=== PATIENT | female | born 1950 | race Caucasian/White ===

== ENCOUNTER 2024-08-27 23:54 | Inpatient (IN) | payer MEDICARE, OTHER ==
[~2024-08-27] VITALS: Ht 170.2 cm; Wt 90.9 kg
[2024-08-28 00:16] LABS: BASOPHILS # (AUTO) 0.1 X10'3 (0-0.2); BASOPHILS % (AUTO) 1.4 % (0-1); EOSINOPHILS # (AUTO) 0.2 X10'3 (0-0.9); EOSINOPHILS % (AUTO) 4.5 % (0-6); HEMATOCRIT 36.9 % (35.0-45.0); HEMOGLOBIN 12.5 g/dl (12.0-16.0); LYMPHOCYTES # (AUTO) 1.6 X10'3 (1.1-4.8); LYMPHOCYTES % (AUTO) 39.6 % (21-51); MEAN CORPUSCULAR HEMOGLOBIN 31.6 PG (27.0-31.0); MEAN CORPUSCULAR HGB CONC 33.7 g/dL (33.0-36.5); MEAN CORPUSCULAR VOLUME 93.6 FL (78-98); MEAN PLATELET VOLUME 9.1 FL (7.4-10.4); MONOCYTES # (AUTO) 0.5 X10'3 (0-0.9); MONOCYTES % (AUTO) 12.6 % (2-12); NEUTROPHILS # (AUTO) 1.6 X10'3 (1.8-7.7); NEUTROPHILS % (AUTO) 41.9 % (42-75); PLATELET COUNT 177 X10'3 (140-440); RED BLOOD COUNT 3.94 X10'6 (4.20-5.60); RED CELL DISTRIBUTION WIDTH 13.5 % (11.5-14.5); WHITE BLOOD COUNT 3.9 X10'3 (4.5-11.0)
[2024-08-28] MEDS: diltiazem 5mg/ml 5ml inj. IV ONE ×2 (00:29→01:07)
[2024-08-28 00:34] LABS: ALANINE AMINOTRANSFERASE 20 U/L (12-78); ALBUMIN 3.2 G/DL (3.4-5.0); ALKALINE PHOSPHATASE 72 IU/L (46-116); ANION GAP 12 (8-16); ASPARTATE AMINO TRANSFERASE 18 U/L (10-37); BILIRUBIN,TOTAL 0.5 MG/DL (0.1-1.0); BLOOD UREA NITROGEN 15 MG/DL (7-18); BUN/CREATININE RATIO 17.4 (10.0-20.0); CHLORIDE 104 MMOL/L (99-107); CREATININE 0.86 MG/DL (0.40-0.90); GLUCOSE 216 MG/DL (70-104); PRO BRAIN NATRIURETIC PEPTIDE 349 PG/ML (0-450); SODIUM 141 MMOL/L (135-145); TOTAL PROTEIN 6.3 G/DL (6.4-8.2); eCRCL 54 ML/MIN; eGFR 64 ML/MIN
[2024-08-28] MEDS ORDERED: diltiazem 5mg/ml 5ml inj. IV ONE (00:45)
[2024-08-28 00:47] LABS: POTASSIUM 2.5 MMOL/L (3.5-5.1)
[2024-08-28] MEDS: potassium Cl 20 mEq SR tablet PO STA (01:05)
[2024-08-28] MEDS: diltiazem-NS 100mg/100ml 100 ML IV SCH (01:13)
[2024-08-28] MEDS: magnesium sulf-water 2g/50mL 50 ML IV ONE (01:18)
[2024-08-28 01:34] LABS: MAGNESIUM 1.6 MG/DL (1.5-2.4)
[2024-08-28] MEDS: potassium Cl 40MEQ/1/2NS 520ml 520 ML IV SCH (01:57)
[2024-08-28] MEDS ORDERED: NIFE-72 PO (02:40)
[2024-08-28] MEDS ORDERED: ROSU40TA PO (02:40)
[2024-08-28] MEDS ORDERED: PIOG15TA8 PO (02:40)
[2024-08-28] MEDS ORDERED: EMPA25TA PO (02:40)
[2024-08-28] MEDS ORDERED: SOTA80TA73 PO (02:40)
[2024-08-28] MEDS ORDERED: LOSA50TA64 PO (02:40)
[2024-08-28] MEDS ORDERED: [UNRECOGNIZED DRUG - CODE] PO (02:40)
[2024-08-28] MEDS ORDERED: OMEP40CA21 PO (02:40)
[2024-08-28] MEDS ORDERED: GLIM2TAB6 PO (02:40)
[2024-08-28] MEDS ORDERED: potassium Cl 20 mEq SR tablet PO PRN (03:10)
[2024-08-28] MEDS ORDERED: magnesium sulf-water 2g/50mL 50 ML IV PRN (03:10)
[2024-08-28] MEDS ORDERED: ondansetron/PF 4mg/2ml inj IV PRN (03:10)
[2024-08-28] MEDS ORDERED: magnesium sulf-water 4G/100mL 100 ML IV PRN (03:10)
[2024-08-28] MEDS ORDERED: potassium Cl 40MEQ/1/2NS 520ml 520 ML IV PRN (03:10)
[2024-08-28] MEDS ORDERED: acetaminophen 325mg tablet PO PRN (03:10)
[2024-08-28] MEDS ORDERED: magnesium Cl slow-release 64mg tablet PO PRN (03:10)
[2024-08-28] MEDS ORDERED: magnesium hydroxide 30ml (MOM) UD suspension PO PRN (03:10)
[2024-08-28] MEDS ORDERED: mag hydrox/Alum hydrox/simeth 30ml oral suspension PO PRN (03:10)
[2024-08-28] MEDS ORDERED: DEXTROSE 15 GM of carb/4 tabs (each vial/BOTTLE has 4 tablets) PO PRN ×2 (03:50)
[2024-08-28] MEDS ORDERED: dextrose 50%-water 50ml dispensing syringe IV PRN ×2 (03:50)
[2024-08-28] MEDS ORDERED: glucagon, human recombinant 1mg kit SUBCUT PRN (03:50)
[2024-08-28 06:00] VITALS: BP 155/64; PULSE 82; RESP 14; TEMP 98.3; O2SAT 99
[2024-08-28] MEDS: INSULIN LISPRO 100 UNIT/ML INSULN.PEN MULTI-DOSE SQ SCH (07:00)
[2024-08-28 07:14] LABS: BILIRUBIN,URINE NEGATIVE (Neg); CLARITY,URINE CLEAR (Clear); COLOR,URINE STRAW (Yellow); GLUCOSE, URINE >=1000 mg/dl (Neg); KETONES,URINE 40 mg/dl (Neg); LEUKOCYTE ESTERASE ,URINE TRACE (Neg); NITRITES, URINE NEGATIVE (Neg); OCCULT BLOOD,URINE NEGATIVE (Neg); PROTEIN,URINE NEGATIVE (Neg); UROBILINOGEN,URINE 0.2 E.U/dL (0.2-1.0)
[2024-08-28 07:19] LABS: UA COLLECTION TYPE CLN CATCH MIDSTREAM
[2024-08-28 07:22] LABS: BACTERIA,URINE 1+ /HPF (Neg); MUCUS STRANDS FEW /LPF (Neg); RBC,URINE NONE SEEN /HPF (0-2); SQUAMOUS EPITHELIAL CELL,UR MODERATE /LPF (FEW)
[2024-08-28 07:24] LABS: WBC CLUMPS,URINE MODERATE /HPF (NEGATIVE); YEAST FEW /HPF (NEGATIVE)
[2024-08-28 07:40] LABS: POTASSIUM 3.6 MMOL/L (3.5-5.1); THYROID STIMULATING HORMONE 0.98 ulU/ml (0.34-4.50)
[2024-08-28] MEDS: K and/or MAG REPLACEMENT MC SCH (08:00)
[2024-08-28] MEDS ORDERED: glimepiride 1 MG tablet PO SCH (08:00)
[2024-08-28] MEDS ORDERED: apixaban 2.5mg tablet PO SCH (08:00)
[2024-08-28] MEDS ORDERED: pioglitazone 15mg tablet PO SCH (08:00)
[2024-08-28] MEDS ORDERED: NIFEdipine XL 30mg tablet PO SCH (08:00)
[2024-08-28] MEDS: docusate sod 100mg capsule PO SCH (09:03)
[2024-08-28] MEDS: losartan 50mg tablet PO SCH (09:03)
[2024-08-28] MEDS: pantoprazole 40mg Tablet.DR PO SCH (09:03)
[2024-08-28] MEDS: atorvastatin 20mg tablet PO SCH (09:03)
[2024-08-28] MEDS: apixaban 5mg tablet PO SCH (09:04)
[2024-08-28] MEDS: EMPAGLIFLOZIN 25 MG TABLET PO SCH (09:05)
[2024-08-28 11:00] VITALS: BP 152/66; PULSE 79; RESP 16; TEMP 98.5; O2SAT 95; O2SAT 99
[2024-08-28] MEDS: metoprolol succinate 25mg (24-HOUR) SR. Tablet PO ONE (12:22)
[2024-08-28 15:00] VITALS: BP 156/63; PULSE 88; RESP 16; TEMP 98.5; O2SAT 99
[2024-08-28 18:00] VITALS: BP 143/63; PULSE 70; RESP 18; TEMP 97.2; O2SAT 97
[2024-08-28 22:00] VITALS: BP 154/62; PULSE 73; RESP 17; TEMP 97.7; O2SAT 97
[2024-08-29] VITALS (8 sets, daily range): BP systolic 143–155; BP diastolic 67–79; PULSE 71–76; RESP 14–18; TEMP 96.9–97.8; O2SAT 9–99
[2024-08-29 07:37] LABS: BASOPHILS # (AUTO) 0.1 X10'3 (0-0.2); BASOPHILS % (AUTO) 1.1 % (0-1); EOSINOPHILS # (AUTO) 0.2 X10'3 (0-0.9); EOSINOPHILS % (AUTO) 4.3 % (0-6); LYMPHOCYTES # (AUTO) 1.1 X10'3 (1.1-4.8); LYMPHOCYTES % (AUTO) 21.6 % (21-51); MEAN CORPUSCULAR HEMOGLOBIN 31.4 PG (27.0-31.0); MEAN CORPUSCULAR HGB CONC 33.4 g/dL (33.0-36.5); MEAN PLATELET VOLUME 8.9 FL (7.4-10.4); MONOCYTES # (AUTO) 0.6 X10'3 (0-0.9); MONOCYTES % (AUTO) 11.8 % (2-12); NEUTROPHILS % (AUTO) 61.2 % (42-75); PLATELET COUNT 174 X10'3 (140-440); RED BLOOD COUNT 3.83 X10'6 (4.20-5.60); WHITE BLOOD COUNT 4.9 X10'3 (4.5-11.0)
[2024-08-29 07:42] LABS: ANION GAP 15 (8-16); BLOOD UREA NITROGEN 9 MG/DL (7-18); BUN/CREATININE RATIO 12.3 (10.0-20.0); CALCIUM 8.4 MG/DL (8.5-10.1); CHLORIDE 102 MMOL/L (99-107); CHOLESTEROL 97 MG/DL (0-200); CREATININE 0.73 MG/DL (0.40-0.90); GLUCOSE 98 MG/DL (70-104); HDL CHOLESTEROL 49 MG/DL (35-60); LDL CHOLESTEROL 44 MG/DL (50-100); POTASSIUM 3.1 MMOL/L (3.5-5.1); SODIUM 139 MMOL/L (135-145); TOTAL CARBON DIOXIDE 22.5 MMOL/L (24-32); TRIGLYCERIDES 64 MG/DL (20-135); eCRCL 64 ML/MIN; eGFR 78 ML/MIN
[2024-08-29] MEDS: metoprolol succinate 25mg (24-HOUR) SR. Tablet PO SCH (08:29)
[2024-08-29] MEDS: potassium Cl 20 mEq SR tablet PO PRN (08:30)
[2024-08-30 02:00] VITALS: BP 143/74; PULSE 73; RESP 18; TEMP 97.5; O2SAT 97
[2024-08-30 06:00] VITALS: BP 139/71; PULSE 77; RESP 17; TEMP 97.3; O2SAT 97
[2024-08-30 07:40] LABS: ALBUMIN 3.2 G/DL (3.4-5.0); ANION GAP 11 (8-16); BLOOD UREA NITROGEN 9 MG/DL (7-18); BUN/CREATININE RATIO 11.4 (10.0-20.0); CALCIUM 8.5 MG/DL (8.5-10.1); CHLORIDE 103 MMOL/L (99-107); CREATININE 0.79 MG/DL (0.40-0.90); GLUCOSE 114 MG/DL (70-104); MAGNESIUM 1.7 MG/DL (1.5-2.4); POTASSIUM 3.5 MMOL/L (3.5-5.1); SODIUM 139 MMOL/L (135-145); TOTAL CARBON DIOXIDE 24.7 MMOL/L (24-32); eCRCL 59 ML/MIN; eGFR 71 ML/MIN
[2024-08-30 07:44] LABS: BASOPHILS % (AUTO) 1.1 % (0-1); EOSINOPHILS # (AUTO) 0.2 X10'3 (0-0.9); EOSINOPHILS % (AUTO) 4.1 % (0-6); HEMATOCRIT 37.2 % (35.0-45.0); HEMOGLOBIN 12.2 g/dl (12.0-16.0); LYMPHOCYTES # (AUTO) 1.1 X10'3 (1.1-4.8); LYMPHOCYTES % (AUTO) 26.4 % (21-51); MEAN CORPUSCULAR HGB CONC 32.7 g/dL (33.0-36.5); MEAN CORPUSCULAR VOLUME 94.8 FL (78-98); MEAN PLATELET VOLUME 8.8 FL (7.4-10.4); MONOCYTES # (AUTO) 0.4 X10'3 (0-0.9); MONOCYTES % (AUTO) 10.9 % (2-12); NEUTROPHILS # (AUTO) 2.3 X10'3 (1.8-7.7); NEUTROPHILS % (AUTO) 57.5 % (42-75); PLATELET COUNT 175 X10'3 (140-440); RED BLOOD COUNT 3.92 X10'6 (4.20-5.60); RED CELL DISTRIBUTION WIDTH 13.6 % (11.5-14.5); WHITE BLOOD COUNT 4.1 X10'3 (4.5-11.0)
[2024-08-30 07:56] VITALS: BP_SYST 139; PULSE 75
[2024-08-30 08:00] VITALS: RESP 17; O2SAT 97
[2024-08-30] MEDS ORDERED: APIX5TAB3 PO (11:06)
[2024-08-30] MEDS ORDERED: METO-395 PO (11:06)
[2024-08-30] MEDS ORDERED: POTA-207 PO (11:06)
== END 2024-08-30 12:10 | disposition home or self-care (01) | DRG 282 ==
LOC: ER 23:56 → UNDOADMIN 08-28 03:15 → ED HOLD 08-28 03:15 → EDBEDREQ 08-28 05:54 → PCU 3S 08-28 07:04
PROVIDERS: ADMIT Surgery Surgical Critical Care; ATTEND Family Medicine
DX: I48.0 Paroxysmal atrial fibrillation (principal); I21.A1 Myocardial infarction type 2; E87.6 Hypokalemia; I47.10 Supraventricular tachycardia, unspecified; I10 Essential (primary) hypertension; E78.5 Hyperlipidemia, unspecified; Z96.652 Presence of left artificial knee joint; K21.9 Gastro-esophageal reflux disease without esophagitis; I07.1 Rheumatic tricuspid insufficiency; E11.9 Type 2 diabetes mellitus without complications; I34.0 Nonrheumatic mitral (valve) insufficiency; Z79.01 Long term (current) use of anticoagulants; Z79.84 Long term (current) use of oral hypoglycemic drugs; Z83.3 Family history of diabetes mellitus; Z88.8 Allergy status to other drugs, medicaments and biological substances; Z91.041 Radiographic dye allergy status
CPT/HCPCS: 36415; 71045; 80048; 80053; 80061; 81001; 82948; 83036; 83735; 83880; 84132; 84443; 84484; 85025; 87081; 87088; 93005; 93306; 97161; 97530; 99291; G0378; J1815; J3480; J3490

== ENCOUNTER 2024-09-04 11:28 | Outpatient (CLI) | payer MEDICARE, OTHER ==
[~2024-09-04 11:28] MED LIST: APIX5TAB3 PO; EMPA25TA PO; GLIM2TAB6 PO; LOSA50TA64 PO; METO-395 PO; NIFE-72 PO; OMEP40CA21 PO; PIOG15TA8 PO; POTA-207 PO; ROSU40TA PO; [UNRECOGNIZED DRUG - CODE] PO
[2024-09-04 12:24] LABS: ALBUMIN 3.4 G/DL (3.4-5.0); ANION GAP 9 (8-16); BLOOD UREA NITROGEN 10 MG/DL (7-18); BUN/CREATININE RATIO 13.2 (10.0-20.0); CALCIUM 9.4 MG/DL (8.5-10.1); CHLORIDE 105 MMOL/L (99-107); CREATININE 0.76 MG/DL (0.40-0.90); GLUCOSE 196 MG/DL (70-104); POTASSIUM 3.2 MMOL/L (3.5-5.1); SODIUM 142 MMOL/L (135-145); TOTAL CARBON DIOXIDE 27.9 MMOL/L (24-32); eGFR 74 ML/MIN
== END 2024-09-04 23:59 | disposition home or self-care (01) ==
LOC: RAD 11:28
PROVIDERS: ATTEND Family Medicine
DX: E87.6 Hypokalemia (principal)
CPT/HCPCS: 36415; 80048

== ENCOUNTER 2025-07-14 18:47 | Emergency (ER) | payer MEDICARE, OTHER ==
[~2025-07-14] VITALS: Ht 172.7 cm; Wt 59.0 kg
[2025-07-14 19:08] VITALS: BP 128/56; PULSE 60; RESP 18; TEMP 97.7; O2SAT 98
[2025-07-14 19:50] LABS: LEUKOCYTE ESTERASE ,URINE SMALL (Neg); NITRITES, URINE NEGATIVE (Neg); OCCULT BLOOD,URINE TRACE-INTACT (Neg)
[2025-07-14 19:52] LABS: MEAN PLATELET VOLUME 8.1 FL (7.4-10.4); RED CELL DISTRIBUTION WIDTH 15.1 % (11.5-14.5)
[2025-07-14 20:00] LABS: UA COLLECTION TYPE NON-SPECIFIED
[2025-07-14 20:01] LABS: SQUAMOUS EPITHELIAL CELL,UR FEW /LPF (FEW)
[2025-07-14 20:02] LABS: MUCUS STRANDS FEW /LPF (Neg)
[2025-07-14 20:17] LABS: CREATININE 0.69 MG/DL (0.40-0.90); TOTAL CARBON DIOXIDE 24.3 MMOL/L (24-32); eCRCL 64 ML/MIN; eGFR 82 ML/MIN
== END 2025-07-14 22:41 | disposition left against medical advice (07) ==
LOC: ER 18:48
DX: R19.7 Diarrhea, unspecified (principal); Z88.8 Allergy status to other drugs, medicaments and biological substances; Z79.899 Other long term (current) drug therapy; Z53.21 Procedure and treatment not carried out due to patient leaving prior to being seen by health care provider
CPT/HCPCS: 36415; 80053; 81001; 83690; 85025; 87077; 87088; 87186

== ENCOUNTER → 2025-07-21 | Emergency (ER) | payer MEDICARE, OTHER ==
[~2025-07-21] VITALS: Ht 172.7 cm; Wt 74.1 kg
[~2025-07-21] MED LIST changes: +loperamide 2mg capsule PO ONE
[2025-07-21 15:30] VITALS: BP 113/50; PULSE 76; RESP 15; TEMP 97.5; O2SAT 98
--- NOTE | 2025-07-21 15:56 | Physician Documentation ---
History of Present Illness ~ Chief Complaint: Diarrhea Stated Complaint: DIARRHEA Time Seen by MD: 15:42 Primary Medical Doctor: EMILIANO DRAPER 75-year-old female who is a type 1 diabetic presents to the ED with a complaint of chronic diarrhea that has gone unexplained. She states that every day she has yellowish diarrhea that she can not explain she says that she takes Imodium ED and it helps in which he sustained an Imodium MD she has diarrhea again not been diagnosed with irritable bowel syndrome or any other associated diagnoses that would explain her symptoms. Denies any nausea vomiting chest pain or shortness of breath Medication Reconciliation Allergies: Coded Allergies: lidocaine (Verified Allergy, Unknown, HIVES, 08/28/24) metformin (Verified Adverse Reaction, Unknown, DIARHEA, 08/28/24) Uncoded Allergies: SOTOLOL (Allergy, Mild, 07/14/25) Diarrhea Scheduled Apixaban (Eliquis), 5 MG PO BID Empagliflozin (Jardiance), 25 MG PO DAILY, (Reported) Glimepiride (Glimepiride), 2 MG PO DAILY, (Reported) Losartan Potassium (Losartan Potassium), 50 MG PO DAILY, (Reported) Metformin HCl (Glumetza), 1 TAB PO Q12H, (Reported) Metoprolol Succinate (Metoprolol Succinate), 25 MG PO DAILY Nifedipine (Nifedipine Er), 30 MG PO DAILY, (Reported) Omeprazole (Prilosec), 20 MG PO DAILY, (Reported) Pioglitazone Hcl* (Actos*), 1 TAB PO DAILY, (Reported) Potassium Chloride* (K-Dur*), 1 TAB PO DAILY Rosuvastatin Calcium* (Crestor*), 1 TAB PO DAILY, (Reported) Past Medical History Patient History: FH: diabetes mellitus FATHER Brother FH: heart disease MOTHER Review of Systems All Other Systems at this time: Reviewed and Negative ROS As stated above in the HPI, otherwise all systems are reviewed and negative. Physical Exam Vital Signs: Temperature: 97.5, Source: Temporal, Heart Rate: 76, Respiratory Rate: 15, BP: 113/50, Pulse Oximetry: 98, Weight: 74.100 Physical Exam General: Alert, no apparent distress. HEENT: PERRL, EOMI, no injection, moist mucous membranes. Neck: Full range of motion. Respiratory: Lungs clear, no respiratory distress. Chest: No accessory muscle use. Cardiovascular: Regular rate and rhythm, no murmurs. Gastrointestinal: Soft, nontender, nondistended. Bowels sounds present. Extremities: Normal range of motion, no deformity. Neurologic: Oriented x4. Psychiatric: Normal mood and affect. Skin: Normal color, warm and dry. No edema, no ecchymosis. Progress Results/Orders Results/Orders Orders - TAHIR GARCIA [employer] Urinalysis, Cult If Indicated (07/21/25 15:43) Ct Abdomen Pelvis (07/21/25 15:51) Completed Orders - TAHIR GARCIA [employer] Cbc/Diff (07/21/25 15:43) BMP (07/21/25 15:43) Lipase (07/21/25 15:43) CMP (07/21/25 15:43) Ct Abdomen Pelvis (07/21/25 15:51) Loperamide Capsule (Imodium Capsule) (07/21/25 16:55) Vital Signs 07/21/25 15:30 Temp 97.5 Pulse 76 Resp 15 B/P (MAP) 113/50 Pulse Ox 98 Laboratory Tests Test 07/21/25 16:02 White Blood Count 5.4 Red Blood Count 4.09 L Hemoglobin 12.2 Hematocrit 36.8 Mean Corpuscular Volume 89.9 Mean Corpuscular Hemoglobin 29.7 Mean Corpuscular Hemoglobin Concent 33.1 Red Cell Distribution Width 14.8 H Platelet Count 208 Mean Platelet Volume 8.0 Neutrophils (%) (Auto) 62.9 Lymphocytes (%) (Auto) 24.6 Monocytes (%) (Auto) 9.9 Eosinophils (%) (Auto) 1.7 Basophils (%) (Auto) 0.9 Neutrophils # (Auto) 3.4 Lymphocytes # (Auto) 1.3 Monocytes # (Auto) 0.5 Eosinophils # (Auto) 0.1 Basophils # (Auto) 0.0 CBC Comment Sodium Level 141 Potassium Level 3.7 Chloride Level 109 H Carbon Dioxide Level 24.0 Anion Gap 8 Blood Urea Nitrogen 28 H Creatinine 0.68 Estimated GFR/1.73 m2 84 BUN/Creatinine Ratio 41.2 H Glucose Level 120 H Calcium Level 8.7 Total Bilirubin 0.4 Aspartate Amino Transf (AST/SGOT) 28 Alanine Aminotransferase (ALT/SGPT) 42 Alkaline Phosphatase 79 Total Protein 6.7 Albumin 3.4 Globulin 3.3 Albumin/Globulin Ratio 1.0 L Lipase 50 Chemistry Comments Medical Decision Making Findings Patient presents with chronic symptoms however I looked in her previous visit with which was just days ago and in the triage she reported approximately eight days of diarrhea. Suspect there may be some underlying dementia that is undiagnosed contributing to patient's unclear etiology of symptoms. However due to her complaint I ordered a CT scan. Her laboratory values were unremarkable and correlate with a previous values. Her CT scan correlates clinically with ongoing diarrhea. See any reason to prefer pursue any further evaluation I am going to discharge her outpatient therapy Did offer hospital admission to the patient for fluid resuscitation and further management however patient declined Diff Dx GI Bleed:Consideration: Include: AE fistula, Angiodysplasia, Bleeding diathesis, Blood loss anemia, Carcinoma, Diverticulosis, Diverticulitis, Esophageal varicies, Esophagitis, Gastritis, Gastroenteritis, Inflammatory BD, Lorena-Khan syndrome, Meckel's diverticulum, PUD, Other Departure Disposition: 01 HOME / SELF CARE / HOMELESS Impression: Primary Impression: Diarrhea Additional Instructions: Has a explained your lab values and CT were unremarkable. I recommend following up with your primary care to obtain a referral if your symptoms persist getting a colonoscopy and/or endoscopy Referrals: NO PRIMARY CARE PROVIDER (PCP) Education Educated: Patient Educated regarding: diagnosis Signature Scribe Signature: d Attestation: Scribed for Tahir Garcia [employer] Attendant by Tahir Evans NP . 07/21/25 16:54 TAHIR GARCIA NP Jul 21, 2025 15:56
[2025-07-21 16:15] LABS: MEAN PLATELET VOLUME 8.0 FL (7.4-10.4); RED CELL DISTRIBUTION WIDTH 14.8 % (11.5-14.5)
--- NOTE | 2025-07-21 16:43 | RADIOLOGY REPORT ---
EXAM: CT CT ABDOMEN PELVIS HISTORY: diarrhea abd pain TECHNIQUE: Volumetric multidetector CT images of the abdomen and pelvis were obtained after the administration of intravenous contrast. All CT scans at this facility use dose modulation, iterative reconstruction, and/or weight based dosing when appropriate to reduce radiation dose to as low as reasonably achievable. COMPARISON: None FINDINGS: [LOWER CHEST]: The partially visualized lung bases are clear without a pleural effusion. [LIVER]: Normal hepatic size without suspicious focal lesion. [GALLBLADDER AND BILIARY TREE]: No cholelithiasis. [SPLEEN]: Unremarkable. [PANCREAS]: Unremarkable. [ADRENAL GLANDS]: Unremarkable [KIDNEYS]: No hydronephrosis. No nephroureterolithiasis. Benign-appearing cysts of the left kidney. [BLADDER]: Unremarkable for the degree distention. [REPRODUCTIVE ORGANS]: Unremarkable. [BOWEL/MESENTERY]: Stomach is normal. Mild stool burden. Air-fluid levels in the ascending to transverse colon, which may be within normal limits however correlate for diarrheal illness. [ASCITES]: Trace pelvic ascites [LYMPHADENOPATHY]: No pathologically enlarged lymph nodes by CT size criteria [VASCULATURE]: No aneurysmal dilatation. [ABDOMINAL WALL]: Unremarkable. [MUSCULOSKELETAL]: No acute fracture or aggressive focal osseous lesion. Multifocal degenerative change of the visualized spine. IMPRESSION: 1. Air-fluid levels in the ascending to transverse colon, which may be within normal limits however correlate for diarrheal illness. 2. Trace pelvic ascites.
[2025-07-21 16:49] LABS: CREATININE 0.68 MG/DL (0.40-0.90); TOTAL CARBON DIOXIDE 24.0 MMOL/L (24-32); eCRCL 70 ML/MIN; eGFR 84 ML/MIN
[2025-07-21 17:04] LABS: LEUKOCYTE ESTERASE ,URINE SMALL (Neg); NITRITES, URINE NEGATIVE (Neg); OCCULT BLOOD,URINE NEGATIVE (Neg)
[2025-07-21 17:09] LABS: UA COLLECTION TYPE CLN CATCH MIDSTREAM
[2025-07-21 17:10] LABS: MUCUS STRANDS NONE SEEN /LPF (Neg); SQUAMOUS EPITHELIAL CELL,UR FEW /LPF (FEW)
== END | disposition home or self-care (01) ==
LOC: ER 15:26
DX: R19.7 Diarrhea, unspecified (principal); E10.9 Type 1 diabetes mellitus without complications; Z79.4 Long term (current) use of insulin; Z88.8 Allergy status to other drugs, medicaments and biological substances; Z79.899 Other long term (current) drug therapy; Z79.84 Long term (current) use of oral hypoglycemic drugs
CPT/HCPCS: 36415; 74176; 80053; 81001; 83690; 85025; 87088; 99284